=== PATIENT | male | born 2000 | race American Indian/Alaskan Native ===

== ENCOUNTER 2020-05-22 23:33 | Emergency (ER) | payer SELFPAY ==
[2020-05-23 00:12] VITALS: BP 118/71
--- NOTE | 2020-05-23 00:13 | XRay Report ---
CHEST 2 VIEWS INDICATION / CLINICAL INFORMATION: Palpitations. COMPARISON: None available. FINDINGS: SUPPORT DEVICES: None. HEART / MEDIASTINUM: The heart size and pulmonary vasculature are normal. The aorta is normal in oli sho. LUNGS / PLEURA: No significant pulmonary or pleural abnormality. No pneumothorax. ADDITIONAL FINDINGS: No significant additional findings. IMPRESSION: No acute findings. Signer Name: Grupo Manrique MD Signed: 05/23/2020 12:08 AM Workstation Name: [id number]
--- NOTE | 2020-05-23 02:57 | Emergency Department Report ---
ED Palpitations HPI - General Chief Complaint: Arrhythmia/Palpitations Stated Complaint: HEART RACING/DIZZY Time Seen by Provider: 05/23/20 02:51 Source: patient Mode of arrival: Ambulatory Limitations: No Limitations - History of Present Illness Initial Comments: Patient is a 20-year-old male who presents for intermittent palpitations, patient denies cardiac history denies other medical concern. Patient does endorse increased stress this week. There is been no chest pain, nausea vomiting, diaphoresis, lightheadedness or dizziness. Symptoms are exacerbated by stress, symptoms are relieved by rest. There has been no fever, chills, suspicious contacts or travel. EKG normal sinus rhythm, chest x-ray no infiltrates no opacities normal. Plan Atarax as needed itching. Follow-up with primary care doctor in 2 to 3 days. Patient verbalized agreement and understanding with discharge plan. Patient DC'd home in stable condition at this time. - Related Data Previous Rx's Medication Instructions Recorded Last Taken Type hydrOXYzine HCL [Atarax] 25 mg PO BID PRN #14 tablet 05/23/20 Unknown Rx Allergies Allergy/AdvReac Type Severity Reaction Status Date / Time No Known Allergies Allergy Unverified 05/23/20 00:05 ED Review of Systems ROS: Stated complaint: HEART RACING/DIZZY Other details as noted in HPI Constitutional: denies: chills, fever Eyes: denies: eye pain, eye discharge, vision change ENT: denies: ear pain, throat pain Respiratory: denies: cough, shortness of breath, wheezing Cardiovascular: denies: chest pain, palpitations, edema, syncope, paroxysmal nocturnal dyspnea Endocrine: no symptoms reported Gastrointestinal: denies: abdominal pain, nausea, diarrhea Genitourinary: denies: urgency, dysuria Musculoskeletal: denies: back pain, joint swelling, arthralgia Skin: denies: rash, lesions Neurological: denies: headache, weakness, paresthesias Psychiatric: denies: anxiety, depression ED Past Medical Hx - Past Medical History Previous Medical History?: No - Surgical History Past Surgical History?: No - Social History Smoking Status: Never Smoker Substance Use Type: Marijuana - Medications Home Medications: Home Medications Medication Instructions Recorded Confirmed Last Taken Type hydrOXYzine HCL [Atarax] 25 mg PO BID PRN #14 tablet 05/23/20 Unknown Rx ED Physical Exam - General Limitations: No Limitations General appearance: alert, in no apparent distress - Head Head exam: Present: atraumatic, normocephalic - Eye Eye exam: Present: normal appearance, EOMI Pupils: Present: normal accommodation - ENT ENT exam: Present: mucous membranes moist - Neck Neck exam: Present: normal inspection, full ROM. Absent: tenderness, lymphadenopathy - Respiratory Respiratory exam: Present: normal lung sounds bilaterally. Absent: respiratory distress - Cardiovascular Cardiovascular Exam: Present: regular rate, normal rhythm, normal heart sounds. Absent: systolic murmur, diastolic murmur, rubs, gallop - GI/Abdominal GI/Abdominal exam: Present: soft, normal bowel sounds. Absent: distended, tenderness, guarding, rebound, rigid, bruit, hernia - Rectal Rectal exam: Present: deferred - exam: Present: normal inspection - Extremities Exam Extremities exam: Present: normal inspection - Back Exam Back exam: Present: normal inspection. Absent: CVA tenderness (R), CVA tenderness (L), paraspinal tenderness - Neurological Exam Neurological exam: Present: alert, oriented X3 - Psychiatric Psychiatric exam: Present: normal affect, normal mood - Skin Skin exam: Present: warm, dry, intact, normal color. Absent: rash ED Course Vital Signs 05/22/20 23:45 Temperature 97.8 F Pulse Rate 72 Respiratory 16 Rate Blood Pressure 118/71 O2 Sat by Pulse 97 Oximetry ED Medical Decision Making - Radiology Data Radiology results: report reviewed, image reviewed FINDINGS: SUPPORT DEVICES: None. HEART / MEDIASTINUM: The heart size and pulmonary vasculature are normal. The aorta is normal in caliber. LUNGS / PLEURA: No significant pulmonary or pleural abnormality. No pneumothorax. ADDITIONAL FINDINGS: No significant additional findings. IMPRESSION: No acute findings. Signer Name: Grupo Manrique MD Signed: 05/23/2020 12:08 AM Workstation Name: [id number] Transcribed By: RT Dictated By: Grupo Manrique MD Electronically Authenticated By: Grupo Manrique MD Signed Date/Time: 05/23/207 DD/ TD/TT: - Medical Decision Making EKG normal sinus rhythm no ST elevated [place] EKG interpreted by ED attending. Chest x-ray normal no infiltrates no opacities. Physical exam is normal. there has been no fever chills, no cough, no suspicious contacts. This is likely stress versus anxiety. Plan DC to home follow-up primary care doctor in 2 to 3 days rest and relaxation as discussed and agreed. Return to emergency department should symptoms worsen or return. Patient verbalized agreement and understanding with same patient DC'd home in stable condition at this time, Critical care attestation.: If time is entered above; I have spent that time in minutes in the direct care of this critically ill patient, excluding procedure time. ED Disposition Clinical Impression: Stress Disposition: DC-01 TO HOME OR SELFCARE Is pt being admited?: No Does the pt Need Aspirin: No Condition: Stable Instructions: Mindfulness-Based Stress Reduction, Nonspecific Chest Pain, Adult, [id number] Prescriptions: hydrOXYzine HCL [Atarax] 25 mg PO BID PRN #14 tablet PRN Reason: Itching Referrals: PRIMARY CARE, [Primary Care Provider] - 3-5 Days NEIL PECK MD [Staff Physician] - 3-5 Days Forms: Work/School Release Form(ED) Time of Disposition: 03:02
== END 2020-05-23 03:30 | disposition home or self-care (01) ==
LOC: ED 23:33
DX: F43.9 Reaction to severe stress, unspecified (principal); F12.10 Cannabis abuse, uncomplicated; Z79.899 Other long term (current) drug therapy
CPT/HCPCS: 71046; 93005; 99283

== ENCOUNTER 2021-11-10 22:56 | Emergency (ER) | payer SELFPAY | END 2021-11-10 23:56 | disposition left against medical advice (07) | LOC: ED 22:56 | DX: R07.9 Chest pain, unspecified (principal); Z53.21 Procedure and treatment not carried out due to patient leaving prior to being seen by health care provider ==